=== PATIENT | male | born 1955 | race Asian ===

== ENCOUNTER 2018-06-11 22:49 | Inpatient (IN) | payer MEDICAID ==
[~2018-06-11] VITALS: Ht 165.1 cm; Wt 71.2 kg
[2018-06-11] MEDS ORDERED: DEXA4TAB PO (23:03)
[2018-06-11] MEDS ORDERED: LEVE500T9 PO (23:03)
[2018-06-11] MEDS ORDERED: HYDR12.5 PO (23:03)
[2018-06-11] MEDS ORDERED: ASPI-605 PO (23:03)
[2018-06-11] MEDS ORDERED: LISI-603 PO (23:03)
[2018-06-11] MEDS ORDERED: CARB200T PO (23:03)
[2018-06-11] MEDS ORDERED: CHOL200026 PO (23:03)
[2018-06-11] MEDS ORDERED: FAMO20TA8 PO (23:03)
--- NOTE | 2018-06-12 00:01 | NUR ---
CALLED [facility], SPOKE TO RN LAWN CARE TECHNICIAN DAYO FOR MEDICAL INFORMATION, JAMIE SIGNED CONSENT FOR [facility] TO OBTAIN INFORMATION, FAXED T0
--- NOTE | 2018-06-12 00:01 | NUR ---
BIBRA7 FR HOME FOR C/O DISCOMFORT ALL OVER BODY AND PER FAMILY, PT WAS "WHEEZING AT HOME". PT HAS HX BRAIN CA. PT IS NON VERBAL BUT ABLE TO TRACK WITH EYES. NO S/S OF ACUTE DISTRESS NOTED. RR EVEN AND UNLABORED. PT PLACED ON WIRE DRAWING MACHINE OPERATOR AND POX.
[2018-06-12 00:08] LABS: BASOPHILS % (AUTO) 0.3 % (0.0-2.0); EOSINOPHILS % (AUTO) 0.2 % (0.0-6.0); HEMATOCRIT 29 % (39-51); HEMOGLOBIN 10.5 g/dL (13.5-17.5); LYMPHOCYTES # (AUTO) 0.8 /CMM (0.8-4.8); LYMPHOCYTES % (AUTO) 8.4 % (20.0-44.0); MEAN CORPUSCULAR HGB CONC 36 g/dl (31.0-36.0); MEAN CORPUSCULAR VOLUME 92 fL (80-96); MONOCYTES # (AUTO) 0.5 /CMM (0.1-1.30); MONOCYTES % (AUTO) 5.2 % (2.0-12.0); NEUTROPHILS # (AUTO) 8.3 /CMM (1.8-8.9); NEUTROPHILS % (AUTO) 85.9 % (43.0-81.0); PLATELET COUNT (AUTO) 196 /CMM (150-450); RED BLOOD CELL COUNT(AUTO) 3.17 MIL/uL (4.5-6.0); WHITE BLOOD COUNT (AUTO) 9.7 K/uL (4.3-11.0)
[2018-06-12 00:21] LABS: ALANINE AMINOTRANSFERASE 45 U/L (12-78); ALBUMIN 2.7 g/dL (3.4-5.0); ALKALINE PHOSPHATASE 63 U/L (46-116); ASPARTATE AMINOTRANSFERASE 19 U/L (15-37); BILIRUBIN,DIRECT 0.1 mg/dL (0.0-0.2); BILIRUBIN,TOTAL 0.3 mg/dL (0.2-1.0); CALCIUM, SERUM 7.7 mg/dL (8.5-10.1); CARBON DIOXIDE 26 mmol/L (21-32); CREATININE 1.2 mg/dL (0.6-1.3); GLUCOSE 122 mg/dL (74-106); POTASSIUM 5.2 mmol/L (3.5-5.1); UREA NITROGEN, BLOOD 32 mg/dL (7-18)
[2018-06-12 00:28] LABS: CHLORIDE 80 mmol/L (98-107); SODIUM SERUM 115 mmol/L (136-145)
[2018-06-12] MEDS ORDERED: IV NS 0.9% 1,000 ML BAG IV ONE (01:00)
--- NOTE | 2018-06-12 01:10 | NUR ---
CALLED [facility], PER CHAIRSE DID NOT RECEIVE, FAX FOR DPOA AUTH FOR OBTAINING MEDICAL INFO, RESENT FAX.
--- NOTE | 2018-06-12 01:13 | NUR ---
PT TO CT
[2018-06-12] MEDS ORDERED: IV NS 0.9% 250 ML IV ONE (01:14)
[2018-06-12] MEDS ORDERED: CT SWABBABLE VALVE TRANS SET 1 EA INFUS.SET MC ONE (01:14)
[2018-06-12] MEDS ORDERED: IOHEXOL-350 100 ML VIAL IV ONE (01:14)
--- NOTE | 2018-06-12 02:47 | NUR ---
EPIC PANEL PAGED, WAITING FOR DR. WHEELER FOR ADMISSION.
--- NOTE | 2018-06-12 02:57 | NUR ---
PT ASSIGNED TO BED 111-1
--- NOTE | 2018-06-12 03:02 | NUR ---
REPORT GIVEN TO DOG WARDENCHAN WONG FOR GAVI
--- NOTE | 2018-06-12 03:18 | NUR ---
DR. WHEELER SPEAKING TO DR. FERREIRA REGARDING ADMISSION.
[2018-06-12] MEDS ORDERED: ENOXAPARIN SODIUM 80 MG/0.8 ML DISP.SYRIN SQ ONE (03:23)
[2018-06-12] MEDS ORDERED: MAGNESIUM HYDROXIDE 30 ML UDC PO PRN (04:00)
[2018-06-12] MEDS ORDERED: HYDROCODONE/APAP 5/325MG 1 EACH TABLET PO PRN (04:00)
[2018-06-12] MEDS ORDERED: MAG HYDROX/AL HYDROX/SIMETH 30 ML UDC PO PRN (04:00)
[2018-06-12] MEDS ORDERED: ZOLPIDEM TARTRATE 5 MG TABLET PO PRN (04:00)
[2018-06-12] MEDS ORDERED: ACETAMINOPHEN 325 MG TABLET PO PRN (04:00)
--- NOTE | 2018-06-12 04:00 | NUR ---
DICTATING MACHINE TRANSCRIBER ADMITTING NOTES RECEIVED REPORT FROM JESI RN. PATIENT ADMITTED TO ROOM 117-1 FROM ED W/ DIAGNOSES HYPONATREMIA & PULMONARY EMBOLISM UNDER CARE OF DR WHEELER. PATIENT UNABLE TO WALK AND A/A/O X1 TO NAME. NON-VERBAL & UNABLE TO MAKE NEEDS KNOWN. BREATHING EVEN & UNLABORED, TOLERATING ROOM AIR & SATING WELL @ 97%. SINUS RHYTHM NOTED ON TELE MONITOR. LEFT WRIST IV #18 INTACT & PATENT W/ DRESSING CDI, SALINE LOCKED. SKIN ASSESSMENT DONE. SAFETY MEASURES IN PLACE W/ SIDE RAILS UP & BED ALARM ON. CAREGIVER @ BEDSIDE. AWAITING ADMITTING ORDERS. WILL CONTINUE TO MONITOR.
--- NOTE | 2018-06-12 07:05 | NUR ---
COUNTY DEMONSTRATOR OPENING NOTES RECEIVED PT LYING ON BED.ALERT/ORIENTED X1 WITH NON VERBAL.ON TELE HR IS 60'S WITH SR.ON ROOM AIR,TOLERATING WELL.NO SOB AND ACUTE DISTRESS NOTED,IV LINE IS ON LEFT WRIST G18,SITE IS CLEAN,DRY AND INTACT.NO INFILTRATION NOTED.RASHES SEEN ON SACRAL,GROIN AND SCROTAL AREA.SAFETY IS MAINTAINED AT ALL TIMES.BED IS IN LOW POSITION AND LOCKED.CALL LIGHT IS WITHIN REACH.WILL CONTINUE TO MONITOR THE PT CLOSELY.
[2018-06-12 08:00] VITALS: BP 102/54
[2018-06-12] MEDS: CHOLECALCIFEROL 1,000 UNIT TABLET (VIT D3) PO SCH ×3 (08:37→18:55)
[2018-06-12] MEDS: LEVETIRACETAM (250 MG) 250 MG TABLET PO SCH ×3 (08:38→18:54)
[2018-06-12] MEDS: ASPIRIN EC 81 MG TABLET.DR PO SCH (08:38)
[2018-06-12] MEDS: FAMOTIDINE (20 MG) 20 MG TABLET PO SCH ×3 (08:38→18:55)
[2018-06-12] MEDS: LISINOPRIL (20MG) 20 MG TABLET PO SCH ×2 (08:38→16:39)
[2018-06-12] MEDS: DEXAMETHASONE 4 MG TABLET PO SCH ×3 (08:40→18:54)
[2018-06-12] MEDS: CARBAMAZEPINE 200 MG TABLET PO SCH ×3 (08:40→18:55)
[2018-06-12] MEDS ORDERED: HYDROCHLOROTHIAZIDE 12.5 MG CAPSULE PO SCH (09:00)
[2018-06-12] MEDS ORDERED: HYDROCHLOROTHIAZIDE 25 MG TABLET PO ONE (10:00)
[2018-06-12] MEDS ORDERED: IV Sodium Chloride 3% 500 ML 500 ML IV ONE (11:00)
[2018-06-12 11:16] LABS: BASOPHILS % (AUTO) 0.4 % (0.0-2.0); CALCIUM, SERUM 7.5 mg/dL (8.5-10.1); CREATININE 0.9 mg/dL (0.6-1.3); EOSINOPHILS % (AUTO) 0.5 % (0.0-6.0); HEMATOCRIT 29 % (39-51); HEMOGLOBIN 10.3 g/dL (13.5-17.5); LYMPHOCYTES # (AUTO) 0.7 /CMM (0.8-4.8); LYMPHOCYTES % (AUTO) 11.7 % (20.0-44.0); MEAN CORPUSCULAR HGB CONC 36 g/dl (31.0-36.0); MEAN CORPUSCULAR VOLUME 93 fL (80-96); MONOCYTES # (AUTO) 0.5 /CMM (0.1-1.30); MONOCYTES % (AUTO) 7.6 % (2.0-12.0); NEUTROPHILS # (AUTO) 4.9 /CMM (1.8-8.9); NEUTROPHILS % (AUTO) 79.8 % (43.0-81.0); PLATELET COUNT (AUTO) 165 /CMM (150-450); POTASSIUM 4.8 mmol/L (3.5-5.1); WHITE BLOOD COUNT (AUTO) 6.2 K/uL (4.3-11.0)
[2018-06-12 12:00] VITALS: BP 97/65
[2018-06-12] MEDS: ENOXAPARIN SODIUM 60 MG/0.6 ML DISP.SYRIN SQ SCH (15:44)
[2018-06-12 16:00] VITALS: BP 99/61
[2018-06-12] MEDS: ONDANSETRON HCL/PF 4 MG/2 ML VIAL IVP PRN (16:40)
[2018-06-12 16:45] LABS: CALCIUM, SERUM 7.9 mg/dL (8.5-10.1); CREATININE 0.9 mg/dL (0.6-1.3)
[2018-06-12 16:46] LABS: APPEARANCE,URINE CLEAR (CLEAR); BILIRUBIN,URINE NEGATIVE (NEGATIVE); BLOOD, URINE 1+ Ery/uL (NEGATIVE); COLOR,URINE YELLOW (YELLOW); KETONES,URINE NEGATIVE (NEGATIVE); LEUKOCYTE ESTERASE ,URINE NEGATIVE (NEGATIVE); NITRITE, URINE NEGATIVE (NEGATIVE); PROTEIN,URINE NEGATIVE (NEGATIVE); UGLUCOSE NEGATIVE (NEGATIVE); UROBILINOGEN,URINE 0.2 EU/dL (0.2)
[2018-06-12 17:03] LABS: URINE SODIUM, RANDOM 49 mmol/l (40-220)
[2018-06-12 17:04] LABS: BACTERIA,URINE Few /HPF (None Seen); SQUAMOUS EPITHELIAL CELL,UR Rare /HPF (None Seen); WBC,URINE 0-2 /HPF (0-3)
[2018-06-12] MEDS ORDERED: ENOXAPARIN SODIUM 80 MG/0.8 ML DISP.SYRIN SQ SCH (18:00)
[2018-06-12 18:28] LABS: OSMOLALITY,URINE 259 mOS/kg (340-1090)
--- NOTE | 2018-06-12 18:56 | NUR ---
STRUCTURAL DRAFTSMAN NOTES PT IS VOMITING X3-4.HOLD THE PM MEDS. MADE AWARE.
--- NOTE | 2018-06-12 18:56 | NUR ---
RIB CLOTH KNITTER NOTE PATIENT HAD 3-4EPISODE OF VOMITING . MADE AWARE.GOT NEW ORDERS.WILL CONTINUE TO MONITOR.
[2018-06-12] MEDS ORDERED: METOCLOPRAMIDE HCL 10 MG/2 ML VIAL IV PRN (19:00)
--- NOTE | 2018-06-12 19:00 | NUR ---
COLON THERAPIST CLOSING NOTES PT IS LYING ON BED.NO VOMITING NOTED FOR NOW.PT KEEPS CLEAN DRY .ENDORSED TO RELIGIOUS LEADER RN FOR FOLLOW UP THE VOMITING AND GAVI.
[2018-06-12 20:00] VITALS: BP 112/52
[2018-06-13] VITALS (8 sets, daily range): BP systolic 89–126; BP diastolic 43–76
[2018-06-13] MEDS: ENOXAPARIN SODIUM 60 MG/0.6 ML DISP.SYRIN SQ SCH (03:54)
[2018-06-13 07:12] LABS: BASOPHILS % (AUTO) 0.2 % (0.0-2.0); EOSINOPHILS % (AUTO) 0.5 % (0.0-6.0); HEMATOCRIT 30 % (39-51); HEMOGLOBIN 10.6 g/dL (13.5-17.5); LYMPHOCYTES # (AUTO) 0.5 /CMM (0.8-4.8); LYMPHOCYTES % (AUTO) 9.9 % (20.0-44.0); MEAN CORPUSCULAR HGB CONC 35 g/dl (31.0-36.0); MEAN CORPUSCULAR VOLUME 94 fL (80-96); MONOCYTES # (AUTO) 0.3 /CMM (0.1-1.30); MONOCYTES % (AUTO) 6.8 % (2.0-12.0); NEUTROPHILS # (AUTO) 3.8 /CMM (1.8-8.9); NEUTROPHILS % (AUTO) 82.6 % (43.0-81.0); PLATELET COUNT (AUTO) 162 /CMM (150-450); RED BLOOD CELL COUNT(AUTO) 3.19 MIL/uL (4.5-6.0); WHITE BLOOD COUNT (AUTO) 4.6 K/uL (4.3-11.0)
[2018-06-13 07:25] LABS: CALCIUM, SERUM 7.7 mg/dL (8.5-10.1); CREATININE 0.9 mg/dL (0.6-1.3); MAGNESIUM 2.4 mg/dL (1.8-2.4); PHOSPHORUS 3.7 mg/dL (2.5-4.9); POTASSIUM 4.3 mmol/L (3.5-5.1)
--- NOTE | 2018-06-13 07:30 | NUR ---
RN NOTES RECEIVED PATIENT ON BED. HOB ELEVATED. ALERT/ORIENTED X1, NON VERBAL. ON ROOM AIR, NO SOB NOTED AT THIS TIME, SATING AT 95%, NO SIGNS OF PAIN NOTED AT THIS TIME. SR WITH HR AT 60 ON THE MONITOR . IV LINE ON LEFT WRIST G18, SITE IS CLEAN,DRY AND INTACT. PATENT ON FLUSHING. NO INFILTRATION NOTED. RASHES SEEN ON GROIN, SCROTAL ANS SACRAL AREA. CAREGIVER AT BEDSIDE. SAFETY MEASURES OBSERVED AND MAINTAINED. BED IN LOW AND LOCKED POSITION. CALL LIGHT WITHIN REACH. ISOLATION IMPLEMENTED. WILL CONTINUE TO MONITOR THE PT CLOSELY.
[2018-06-13 07:55] LABS: THYROID STIMULATING HORMONE 1.122 uIU/mL (0.358-3.74); URIC ACID 6.9 mg/dL (2.6-7.2)
--- NOTE | 2018-06-13 08:00 | NUR ---
RN NOTES SEEN AND EXAMINED BY CHAN AMBRIZ (WOUND CARE NURSE). PER KATINA WILL PUT ORDER FOR THE WOUNDS
[2018-06-13] MEDS: ASPIRIN EC 81 MG TABLET.DR PO SCH (08:57)
[2018-06-13] MEDS: Z GUARD REMEDY 2 OZ OINT TP PRN (08:58)
[2018-06-13] MEDS: DEXAMETHASONE 4 MG TABLET PO SCH ×2 (08:58→16:48)
[2018-06-13] MEDS: FAMOTIDINE (20 MG) 20 MG TABLET PO SCH ×2 (08:58→16:48)
[2018-06-13] MEDS: LEVETIRACETAM (250 MG) 250 MG TABLET PO SCH ×2 (08:58→16:49)
[2018-06-13] MEDS: CHOLECALCIFEROL 1,000 UNIT TABLET (VIT D3) PO SCH ×2 (08:58→16:49)
[2018-06-13] MEDS: CLOTRIMAZOLE/BETAMETASONE DIPROPIONATE 15 GM TUBE TP SCH ×2 (08:58→16:50)
[2018-06-13] MEDS: CARBAMAZEPINE 200 MG TABLET PO SCH ×2 (08:58→16:48)
[2018-06-13] MEDS: LISINOPRIL (20MG) 20 MG TABLET PO SCH ×2 (08:59→16:49)
[2018-06-13] MEDS ORDERED: HYDROCHLOROTHIAZIDE 25 MG TABLET PO SCH (09:00)
--- NOTE | 2018-06-13 09:00 | NUR ---
RN NOTES CALLED [facility] TO FOLLOW UP ON THE CTA OF THE CHEST RESULT, PER APPRAISER REAL ESTATE, MEDICAL OFFICE CLOSED ON . OBTAINED PHONE NUMBER AT [phone] AND FAX NUMBER AT [phone]. LEFT VOICE MAIL AND CALL BACK NUMBER.
--- NOTE | 2018-06-13 09:15 | NUR ---
RN NOTES SPOKE TO YAMILE HERRERA (DAUGHTER), ASKED FOR DISCHARGE PAPERS GIVEN TO THE PATIENT ON THE LAST HOSPITALIZATION, WAS ABLE TO FAXED BUT UNFORTUNATELY DOES NOT INCLUDE CTA RESULT. PAPERS FILED ON THE CHART
--- NOTE | 2018-06-13 12:06 | NUR ---
WOUND CARE CONSULT: PT PRESENTS WITH RASH TO PERINEAL, GROIN, BUTTOCKS PRESENT ON ADMISSION. RECOMMENDATIONS MADE FOR SKIN CARE AND PROTECTION. DISCUSSED WITH NURSING STAFF. WILL SEE PRN. CASTAÑEDA IN AGREEMENT WITH PLAN OF CARE. Addendum: 06/13/18 at 1208 by KATINA STONE WNDNU PT ON [facility].
[2018-06-13] MEDS: ONDANSETRON HCL/PF 4 MG/2 ML VIAL IVP PRN (19:14)
--- NOTE | 2018-06-13 19:30 | NUR ---
RN NOTES PATIENT NOTED WITH VOMITING, PATIENT FED BY DAUGHTER. PER DAUGHTER, GAVE PATIENT OATMEAL BROUGHT FROM OUTSIDE. PATIENT KEPT UPRIGHT, GIVEN ZOFRAN 4MG IV PRN. THEN NOTED WITH SATURATION AT 89%, PATIENT PLACED ON NON REBREATHER MASK, STAT CHEST XRAY AND ABG OBTAINED. PATIENT KEPT MONITORED.
--- NOTE | 2018-06-13 19:45 | NUR ---
RN NOTES ENDORSED PATIENT FOR CONTINUITY OF CARE. PATIENT STILL ON HIGH CLARK'S POSITION. ON NON REBREATHER MASK SATING AT 95%. SAFETY MEASURES IN PLACE. CALL LIGHT WITHIN REACH AT ALL TIMES
[2018-06-13 20:00] LABS: ABG BASE EXCESS -3.6 mmol/L; ABG PCO2 28.2 mmHg (35.0-45.0); ABG PH 7.454 (7.350-7.450); ABG PO2 74.4 mmHg (75.0-100.0); AaDO2 610.4 mmHg; COHb 0.3 % (0.5-1.5); MetHb 0.6 % (0.0-1.5); O2Hb 93.2 % (94.0-97.0); SITE, ABG Right Radial
--- NOTE | 2018-06-13 20:00 | NUR ---
FOUNDRY TENDER NOTE: RECEIVED PT WITH HEAD OF BED ELEVATED. DAUGHTER AND CAREGIVER AT BEDSIDE. PT STILL COUGHING. SUCTIONED NEEDED. ON NON REBREATHER MASK 15LPM, O2 SAT 97%. SINUS RHYTHM ON TELE MONITOR HR 100BPM. IV ON LEFT WRIST #18 INTACT AND PATENT, FLUSHING WELL. KEPT CLEAN, DRY AND COMFORTABLE. SAFETY AND FALL PRECAUTIONS OBSERVED AND MAINTAINED. WILL CONTINUE TO MONITOR PT.
--- NOTE | 2018-06-13 22:37 | NUR ---
COLLAR RUNNER NOTE: DR. WHEELER MADE AWARE REGARDING PATIENT'S CHANGE OF CONDITION EARLIER, PER DR. WHEELER JUST MONITOR PT AND KEEP HIM ON NON REBREATHER MASK 15LPM. PATIENT STABLE AT THIS TIME. ALSO INFORMED DR. WHEELER REGARDING BLOOD CULTURE RESULT GRAM POSITIVE COCCI IN CLUSTERS, NO NEW ORDERS. WILL CONTINUE TO MONITOR PT.
[2018-06-14] VITALS (63 sets, daily range): BP systolic 68–157; BP diastolic 39–101
[2018-06-14 06:28] LABS: BASOPHILS % (AUTO) 0.2 % (0.0-2.0); EOSINOPHILS % (AUTO) 0.3 % (0.0-6.0); HEMATOCRIT 26 % (39-51); HEMOGLOBIN 9.3 g/dL (13.5-17.5); LYMPHOCYTES # (AUTO) 0.5 /CMM (0.8-4.8); LYMPHOCYTES % (AUTO) 15.8 % (20.0-44.0); MEAN CORPUSCULAR HGB CONC 35 g/dl (31.0-36.0); MEAN CORPUSCULAR VOLUME 93 fL (80-96); MONOCYTES # (AUTO) 0.3 /CMM (0.1-1.30); MONOCYTES % (AUTO) 9.9 % (2.0-12.0); NEUTROPHILS # (AUTO) 2.1 /CMM (1.8-8.9); NEUTROPHILS % (AUTO) 73.8 % (43.0-81.0); PLATELET COUNT (AUTO) 161 /CMM (150-450); RED BLOOD CELL COUNT(AUTO) 2.82 MIL/uL (4.5-6.0); WHITE BLOOD COUNT (AUTO) 2.9 K/uL (4.3-11.0)
[2018-06-14 06:39] LABS: CALCIUM, SERUM 8.1 mg/dL (8.5-10.1); CREATININE 1.3 mg/dL (0.6-1.3); MAGNESIUM 2.3 mg/dL (1.8-2.4); PHOSPHORUS 3.5 mg/dL (2.5-4.9); POTASSIUM 4.7 mmol/L (3.5-5.1)
--- NOTE | 2018-06-14 06:50 | NUR ---
TRUCK RENTAL SERVICE ATTENDANT NOTE: PT IN BED ASLEEP WITH NO APPARENT DISTRESS NOTED. PT STABLE AT THIS TIME. NO FACIAL GRIMACING OR ANY SIGNS OF PAIN NOTED. CAREGIVER AT BEDSIDE. ON TELE MONITOR SINUS RHYTHM HR 96BPM. STILL ON NON REBREATHER MASK, SATURATING WELL. KEPT CLEAN, DRY AND COMFORTABLE. SAFETY AND FALL PRECAUTIONS OBSERVED AND MAINTAINED. WILL ENDORSE TO DAY SHIFT RN FOR CONTINUITY OF CARE.
--- NOTE | 2018-06-14 07:15 | NUR ---
MANAGER PERIOPERATIVE OPENING NOTES RECEIVED REPORT FROM AM NURSEBONITA. PT ON 15L NRB MASK WITH LABORED BREATHING. SR 92 ON TELE. R SHOULDER #22 SL. CAREGIVER AT BEDSIDE. HOB ELEVATED TO 40 DEG. PM NURSE INITIATED COOLING MEASURES FOR LOW GRADE FEVER. BED IN LOCKED/LOWEST POSITION. CALL LIGHT IN REACH. WILL CONT TO MONITOR.
[2018-06-14] MEDS: FAMOTIDINE (20 MG) 20 MG TABLET PO SCH ×2 (08:09→17:31)
[2018-06-14] MEDS: CHOLECALCIFEROL 1,000 UNIT TABLET (VIT D3) PO SCH ×2 (08:09→17:32)
[2018-06-14] MEDS: DEXAMETHASONE 4 MG TABLET PO SCH ×2 (08:09→17:34)
[2018-06-14] MEDS: ASPIRIN EC 81 MG TABLET.DR PO SCH (08:09)
[2018-06-14] MEDS: LEVETIRACETAM (250 MG) 250 MG TABLET PO SCH ×2 (08:10→17:31)
[2018-06-14] MEDS: LISINOPRIL (20MG) 20 MG TABLET PO SCH (08:11)
[2018-06-14] MEDS: CLOTRIMAZOLE/BETAMETASONE DIPROPIONATE 15 GM TUBE TP SCH ×2 (08:28→17:46)
[2018-06-14 08:29] LABS: BAND % (MANUAL) 21 % (0.0-5.0); EOSINOPHILS % (MANUAL) 1 % (0-4); LYMPHOCYTES % (MANUAL) 24 % (16-48); MONOCYTES % (MANUAL) 7 % (0-11.0); NEUTROPHILS % (MANUAL) 47 (42-76)
[2018-06-14] MEDS ORDERED: ETOMIDATE 2 MG/ML VIAL IV ONE (10:00)
--- NOTE | 2018-06-14 10:00 | NUR ---
SLEEVE MAKER NOTES DR CORNEJO ROUNDED WITH PT. PER DR CORNEJO, PT NEEDS TO BE INTUBATED AND TRANSFERRED TO ICU NOW D/T LABORED BREATHING AND ABG'S.
--- NOTE | 2018-06-14 10:10 | NUR ---
HIGHWAY MAINTENANCE SUPERVISOR NOTES PT TRANSFERRED TO ICU, RT AT BEDSIDE, CHAN SEXTON ACCOMPANYING. PT ON NON REBREATHER AT 15LPM. REPORT GIVEN TO CHAN RAMSAY FOR GAVI. CAREGIVER AT BEDSIDE. DR CORNEJO AT BS. INTUBATION TO BE DONE IN ICU.
--- NOTE | 2018-06-14 10:20 | NUR ---
ICU/RN: Pt transferred to ICU for respiratory distress requiring emergent intubation per Dr Garcia. ER MD contacted for intubation.
--- NOTE | 2018-06-14 10:26 | NUR ---
PT INTUBATED BY DR. BHAKTA DUE TO PT IMPENDING RESP. FAILURE. PT INTUBATED WITH A 7.0 ETT AT 20CM AT THE LIP. VENT SETTINGS PER DR. CORNEJO. VENT ALARMS SET AND AUDIBLE PER POLICY. VENT PLUGGED INTO RED OUTLET. Addendum: 06/14/18 at 1238 by LUCILLE PURVIS RT Amended: Links added.
[2018-06-14] MEDS ORDERED: NOREPINEPHRINE 8 MG in IV D5W 500 ML IV PRN (10:30)
[2018-06-14] MEDS ORDERED: IV NS 0.9% 1,000 ML IV ONE (10:30)
--- NOTE | 2018-06-14 10:30 | NUR ---
ICU/RN: Dr Garcia at bedside s/p intubation. Noted pt hypotensive with orders to bolus 1L NS, if ineffective, bolus an additional 1.5L to keep SBP >90mmHg. Juan Carlos, daughter updated telephonically and consent obtained for PICC line placement. brim presser updated.
[2018-06-14] MEDS: PROPOFOL 100 ML IV PRN ×3 (10:41→21:22)
[2018-06-14] MEDS ORDERED: VANCOMYCIN 1 GM in IV D5W 250 ML IV ONE (11:00)
[2018-06-14] MEDS ORDERED: FEE PK DOSING 1 MIN EA MC ONE (11:11)
[2018-06-14] MEDS: PIPERACILLIN /TAZOBACTAM 3.375 G in IV D5W 50 ML IV SCH ×2 (11:59→17:31)
[2018-06-14] MEDS: HYDROCORTISONE SOD SUCCINATE 100 MG/2 ML VIAL IV SCH ×3 (11:59→17:31)
--- NOTE | 2018-06-14 12:00 | NUR ---
ICU/RN: Pt vomited what appears to be pt's breakfast, HOB elevated; OGT clamped. Aspiration precautions maintained throughout.
[2018-06-14 12:16] LABS: ABG BASE EXCESS -3.5 mmol/L; ABG OXYGEN SATURATION 98.5 % (92.0-98.5); ABG PCO2 33.2 mmHg (35.0-45.0); ABG PH 7.411 (7.350-7.450); AaDO2 323.8 mmHg; COHb 0.4 % (0.5-1.5); MetHb 0.6 % (0.0-1.5); O2Hb 97.5 % (94.0-97.0); PEEP,BG 5 cm H2O; SITE, ABG Right Radial
--- NOTE | 2018-06-14 13:00 | NUR ---
ICU/RN: Dr Carreno at bedside; updated on pt status, S/P intubation, ongoing total of 2.5L NS bolus as ordered by Dr Garcia. Per MD, okay to start levophed if fluid challenge ineffective in managing hypotension. Awaiting central line placement.
--- NOTE | 2018-06-14 14:15 | NUR ---
ICU/RN: Pt s/p central line insertion; new R IJ triple lumen cath inserted by Jose De Jesus Hahn NP. Pt tolerated well. Pending CXR for placement.
[2018-06-14] MEDS: IV D5/ 0.9% NACL 1,000 ML IV PRN ×2 (14:50→21:00)
--- NOTE | 2018-06-14 15:00 | NUR ---
ICU/RN: Pt noted with R lower ext twitching, per daughter at bedside "he's had that for awhile now, especially at night." Jose De Jesus Hahn, VINEGAR MAKER aware, pt currently on decadron and keppra.
--- NOTE | 2018-06-14 16:00 | NUR ---
ICU/RN: Pt tolerating current vent settings, no distress noted. FC draining well to gravity. Hygienic care rendered. Tolerated well. Will cont to monitor pt.
--- NOTE | 2018-06-14 19:16 | NUR ---
ICU/RN: Pt in no distress, breathing even and unlabored, IV meds infusing as ordered. FC draining to gravity. Care endorsed to PM RN for GAVI
--- NOTE | 2018-06-14 19:45 | NUR ---
ICU/RN RECEIVED PT ON VENT VIA ORAL ETT SAT 99% ON 40% FI02.PT RESPONDS ONLY TO TACTILE STIM BY TWITCHING RT LEG AND FROWNING,ALTHOUGH TWITCHING RT LEG IS INVOLUNTARY.ON DIPRIVAN DRIP AT 40MCG.KG/MINUTE DECREASED TO 30MCG SBP=88/52MMHG.ON LEVOPHED DRIP AT 3MCG/MIN THEN INCREASED TO 4MCG/MIN.
[2018-06-14] MEDS: NEOMY SULF/BACITRAC ZN/POLY 15 GM TUBE TP SCH (21:09)
--- NOTE | 2018-06-14 22:00 | NUR ---
ICU/RN SUCTIONED FROM ETT SMALL AMT.THIN TO THICK PALE YELLOW TO WHITE SECRETIONS,ORAL CARE DONE.
[2018-06-14] MEDS: VANCOMYCIN 1 GM in IV D5W 250 ML IV SCH (23:57)
[2018-06-15] VITALS (87 sets, daily range): BP systolic 88–141; BP diastolic 45–86
--- NOTE | 2018-06-15 | NUR ---
ICU/RN COMPLETE BED BATH DONE W/ ORAL CARE.REPOSITIONED AND TURNED.
--- NOTE | 2018-06-15 02:30 | NUR ---
ICU/RN LEVOPHED DRIP DECREASED TO 3MCG/MIN W/ SBP 124MMHG.
[2018-06-15] MEDS: IV D5/ 0.9% NACL 1,000 ML IV PRN ×2 (04:53→13:22)
[2018-06-15 05:32] LABS: EOSINOPHILS % (AUTO) 0.1 % (0.0-6.0); HEMATOCRIT 22 % (39-51); HEMOGLOBIN 7.7 g/dL (13.5-17.5); LYMPHOCYTES # (AUTO) 0.2 /CMM (0.8-4.8); LYMPHOCYTES % (AUTO) 6.9 % (20.0-44.0); MEAN CORPUSCULAR HGB CONC 35 g/dl (31.0-36.0); MEAN CORPUSCULAR VOLUME 94 fL (80-96); MONOCYTES # (AUTO) 0.2 /CMM (0.1-1.30); MONOCYTES % (AUTO) 6.3 % (2.0-12.0); NEUTROPHILS # (AUTO) 2.9 /CMM (1.8-8.9); NEUTROPHILS % (AUTO) 86.7 % (43.0-81.0); PLATELET COUNT (AUTO) 142 /CMM (150-450); RED BLOOD CELL COUNT(AUTO) 2.33 MIL/uL (4.5-6.0); WHITE BLOOD COUNT (AUTO) 3.4 K/uL (4.3-11.0)
[2018-06-15] MEDS: PROPOFOL 100 ML IV PRN ×3 (05:42→19:52)
[2018-06-15 05:46] LABS: CALCIUM, SERUM 7.2 mg/dL (8.5-10.1); CREATININE 0.9 mg/dL (0.6-1.3); MAGNESIUM 2.3 mg/dL (1.8-2.4); PHOSPHORUS 2.9 mg/dL (2.5-4.9); POTASSIUM 3.6 mmol/L (3.5-5.1)
[2018-06-15 05:55] LABS: THYROID STIMULATING HORMONE 0.189 uIU/mL (0.358-3.74)
[2018-06-15] MEDS: PIPERACILLIN /TAZOBACTAM 3.375 G in IV D5W 50 ML IV SCH ×6 (06:04→23:08)
--- NOTE | 2018-06-15 06:30 | NUR ---
ICU/RN LEVOPHED DRIP DECREASED TO 2MCG/MIN W/ SBP [id number].PT ATTEMPTED TO PULL ETT W/ HIS LEFT HAND EVEN W/ RESTRAINTS ON.RESTRAINTS ADJUSTED AND CIRC.CHECKED.REMAINS ON DIPRIVAN DRIP AT 30 MCG/KG/MIN.MONITOR SHOWS NSR.ABDOMEN DISTENDED W/ HYPOACTIVE BOWEL SOUNDS.NO CHANGE ON VENT SETTINGS,100% SATURATION.
--- NOTE | 2018-06-15 07:25 | NUR ---
ICU/RN REPORT AND CARE OF PT. GIVEN TO ASHLEY Desir
--- NOTE | 2018-06-15 07:30 | NUR ---
RECEIVED CARE OF PATIENT. UNTUBATED 7. AND VENT SETTINGS PER ORDER. SEDATED ON DIPRIVAN AND LEVO PER SPREADEET. IV SITES C/D/I/P AND ALEXANDER IN PLACE DRAINING TO GRAVITY. PER RN 1500ML OUTPUT URINE. OGT IN PALCE PATENT AND IN PLACE; CLAMPED. TELE NSR. RESTRAINTS IN PLACE PER RN PATIENT AT TIMES WILL MOVE EXTREMITIES AND WAKE UP. WILL MONITOR FOR NECESSITY. NO S/S ACUTE DISTRESS NOTED. SAFETY, SKIN, ASPIRATION PRECAUTIONS IN PLACE AND MONITORING
[2018-06-15] MEDS: HYDROCORTISONE SOD SUCCINATE 100 MG/2 ML VIAL IV SCH ×3 (08:24→16:54)
[2018-06-15] MEDS: ASPIRIN EC 81 MG TABLET.DR PO SCH (08:24)
[2018-06-15] MEDS: FAMOTIDINE (20 MG) 20 MG TABLET PO SCH ×2 (08:24→16:54)
[2018-06-15] MEDS: LEVETIRACETAM (250 MG) 250 MG TABLET PO SCH ×2 (08:24→16:54)
[2018-06-15] MEDS: CHOLECALCIFEROL 1,000 UNIT TABLET (VIT D3) PO SCH ×2 (08:25→17:03)
[2018-06-15 08:27] LABS: ABG BASE EXCESS -5.3 mmol/L; ABG OXYGEN SATURATION 97.9 % (92.0-98.5); ABG PCO2 30.8 mmHg (35.0-45.0); ABG PH 7.403 (7.350-7.450); ABG PO2 138.5 mmHg (75.0-100.0); AaDO2 111.3 mmHg; COHb 0.3 % (0.5-1.5); MetHb 0.7 % (0.0-1.5); O2Hb 96.9 % (94.0-97.0); SITE, ABG Right Radial
[2018-06-15] MEDS: Z GUARD REMEDY 2 OZ OINT TP PRN (08:28)
[2018-06-15] MEDS: CLOTRIMAZOLE/BETAMETASONE DIPROPIONATE 15 GM TUBE TP SCH ×2 (08:29→17:12)
[2018-06-15] MEDS: NEOMY SULF/BACITRAC ZN/POLY 15 GM TUBE TP SCH ×2 (08:29→21:18)
[2018-06-15] MEDS: DEXAMETHASONE 4 MG TABLET PO SCH ×2 (08:33→17:02)
--- NOTE | 2018-06-15 09:00 | NUR ---
SEDATION VACATION COMPLETE . PATIENT AWAKENS. OPENS EYES, MOVING LEFT EXTREMITY. NOT FOLLOWING COMMANDS AT THIS TIME. PER CG PATIENT DOES NOT ALWAYS FOLLOW COMMANDS AND THIS IS HIS USUAL. PATIENT THRASHING HEAD WITHOUT SEDATION. APPEARS UNCOMFORTABLE. WILL RESUME. DR CORNEJO AT BEDSIDE.
--- NOTE | 2018-06-15 11:28 | NUR ---
Abdomen distended, but soft. Bowel sounds present on all four quadrants. Addendum: 06/15/18 at 1140 by ASHLEY HUTCHINS RN Amended: Links added.
[2018-06-15] MEDS: VANCOMYCIN 1 GM in IV D5W 250 ML IV SCH (12:47)
--- NOTE | 2018-06-15 19:15 | NUR ---
CARE ENDORSED TO ASHA GILES FOR GAVI. VSS. ETT STABLE. VENT SETTINGS PER ORDER AND TOLERATING WELL. NO S/S DISTRESS NOTED. SKIN, SAFETY, ASPIRATION PRECAUTIONS IN PLACE AND MONITORED THROUGHOUT DAY. DAUGHTER AT BEDSIDE AND UPDATED ON PATIENT CARE PLAN. ALEXANDER CATH TO GRAVITY. IV SITES C/D/I/P.
--- NOTE | 2018-06-15 19:30 | NUR ---
RN NOTES PATIENT IS RESTING ON BED. CAREGIVER AND DAUGHTER AT BEDSIDE RECEIVED PT WITH ETT 7.0 AND 23 CM AT LIP CONNECTED TO VENT SETTING AC 16, TV 550 FIO2 40% PEEP 5 TOLERATED WELL. PATIENT IS SEDATED WITH DIPRIVAN FOR SAFETY FROM PULLING OUT THE TUBES AND LINES. SINUS NADER/ NSR ON TELE MONITOR. IV SITE ON LEFT HAND G 20 AND RIGHT SHOULDER G 22 AND ALSO RIJ RUNNING WITH DIPRIVAN @ 35 AND D5 NS @ 50 ML.HR INTACT AND PATENT. NEEDS ATTENDED. KEPT PT CLEAN AND DRY, OFFLOADED EXT WITH PILLOWS. TURNED AND REPOSITIONED FOR SKIN CARE , WILL CONT. TO MONITOR.
[2018-06-16] VITALS (39 sets, daily range): BP systolic 11–150; BP diastolic 59–100
[2018-06-16] MEDS: VANCOMYCIN 1 GM in IV D5W 250 ML IV SCH ×2 (01:22→11:47)
[2018-06-16] MEDS: PROPOFOL 100 ML IV PRN (02:28)
[2018-06-16 04:43] LABS: EOSINOPHILS % (AUTO) 0.1 % (0.0-6.0); HEMATOCRIT 22 % (39-51); HEMOGLOBIN 7.6 g/dL (13.5-17.5); LYMPHOCYTES # (AUTO) 0.4 /CMM (0.8-4.8); LYMPHOCYTES % (AUTO) 9.5 % (20.0-44.0); MEAN CORPUSCULAR HGB CONC 35 g/dl (31.0-36.0); MEAN CORPUSCULAR VOLUME 94 fL (80-96); MONOCYTES # (AUTO) 0.5 /CMM (0.1-1.30); MONOCYTES % (AUTO) 11.1 % (2.0-12.0); NEUTROPHILS # (AUTO) 3.3 /CMM (1.8-8.9); NEUTROPHILS % (AUTO) 79.3 % (43.0-81.0); PLATELET COUNT (AUTO) 151 /CMM (150-450); RED BLOOD CELL COUNT(AUTO) 2.34 MIL/uL (4.5-6.0); WHITE BLOOD COUNT (AUTO) 4.1 K/uL (4.3-11.0)
[2018-06-16 04:49] LABS: ALBUMIN 1.7 g/dL (3.4-5.0); BILIRUBIN,TOTAL 0.3 mg/dL (0.2-1.0); CALCIUM, SERUM 7.4 mg/dL (8.5-10.1); CREATININE 0.9 mg/dL (0.6-1.3); MAGNESIUM 2.3 mg/dL (1.8-2.4); PHOSPHORUS 3.3 mg/dL (2.5-4.9); POTASSIUM 3.3 mmol/L (3.5-5.1); TOTAL PROTEIN, SERUM 4.9 g/dL (6.4-8.2)
[2018-06-16] MEDS: PIPERACILLIN /TAZOBACTAM 3.375 G in IV D5W 50 ML IV SCH ×3 (05:16→17:16)
--- NOTE | 2018-06-16 07:18 | NUR ---
RN NOTES PATIENT REMAINED IN STABLE CONDITION CONTINUE ON ETT AND VENT. NO APPARENT RESPIRATORY DISTRESS. AFEBRILE THROUGHOUT THE SHIFT. NO SIGNIFICANT CHANGE OF CONDITION. PT CONTINUE SEDATED WITH DIPRIVAN TITRATED ORDERED. IV SITE INTACT AND PATENT. SINUS NADER ON TELE MONITOR LOWEST ONE WAS 38 ONE TIME. BED BATH DONE AND TOLERATED WELL. ALL DUE MEDICINE ADMINISTERED ORDERED. F/C INTACT AND PATENT AND OFF FROM THE FLOOR. ENDORSED CONTINUITY OF CARE TO AM NURSE.
--- NOTE | 2018-06-16 07:28 | NUR ---
RECEIVED CARE OF PATIENT. INTUBATED 7.0/23 AND VENT SETTINGS PER ORDER. SEDATED ON DIPRIVAN MOVES TO LOCALIZED PAIN. IV SITES C/D/I/P AND ALEXANDER IN PLACE DRAINING TO GRAVITY. OGT IN PLACE PATENT AND CLAMPED. TELE NSR/SB LOWEST 38 LAST NIGHT. RESTRAINT IN PLACE TO LEFT HAND PATIENT AT TIMES WILL MOVE EXTREMITY AND WAKE UP. NO S/S ACUTE DISTRESS NOTED. SAFETY, SKIN, ASPIRATION PRECAUTIONS IN PLACE AND MONITORING. RT AWARE PERKINS WITH ID WANTING RESP CX; THEY WILL OBTAIN. PENDING WEANING TRIAL THIS AM.
[2018-06-16] MEDS ORDERED: DC PROPOFOL WHEN EXTUBATED XX PRN (08:00)
[2018-06-16] MEDS: ASPIRIN EC 81 MG TABLET.DR PO SCH (08:01)
[2018-06-16] MEDS: LEVETIRACETAM (250 MG) 250 MG TABLET PO SCH ×2 (08:01→16:28)
[2018-06-16] MEDS: DEXAMETHASONE 4 MG TABLET PO SCH ×2 (08:02→16:30)
[2018-06-16] MEDS: HYDROCORTISONE SOD SUCCINATE 100 MG/2 ML VIAL IV SCH ×3 (08:02→16:27)
[2018-06-16] MEDS: FAMOTIDINE (20 MG) 20 MG TABLET PO SCH ×2 (08:02→16:28)
[2018-06-16] MEDS: CHOLECALCIFEROL 1,000 UNIT TABLET (VIT D3) PO SCH ×2 (08:02→16:28)
[2018-06-16] MEDS: Z GUARD REMEDY 2 OZ OINT TP PRN (08:03)
[2018-06-16] MEDS: CLOTRIMAZOLE/BETAMETASONE DIPROPIONATE 15 GM TUBE TP SCH ×2 (08:04→17:16)
[2018-06-16] MEDS: NEOMY SULF/BACITRAC ZN/POLY 15 GM TUBE TP SCH ×2 (08:04→22:00)
--- NOTE | 2018-06-16 08:40 | NUR ---
PATIENT TITRATED OFF DIPRIVAN. CALM AND COOPERATIVE. AWAKE TO NAME. SQUEEZING LEFT HAND TO REQUEST. DR CORNEJO AT BEDSIDE. OK FOR SIMV TRIAL; RT BROCK AT BESIDE.
--- NOTE | 2018-06-16 09:30 | NUR ---
RT NOTE RECEIVED PT MECHANICALLY VENTILATED VIA 7.0 ETT 20 CM AT LIP. ETT SECURE. CUFF INFLATED. VENTILATOR SETTINGS PRESCRIBED. ALARMS SET PER PROTOCOL AND AUDIBLE. VENT PLUGGED IN TO RED OUTLET. AMBU BAG AT BED SIDE. 0840- PT PLACED ON SIMV MODE PER MD CORNEJO ORDER. SETTINGS FOLLOW SIMV 4 PS 15 +5. PT AWAKE AND RESPONDS TO COMMANDS. PT PERSONAL SITTER AT BED SIDE. RN NOTIFIED. NO DISTRESS NOTED AT MOMENT. Addendum: 06/16/18 at 0934 by VINOD MATHIS RT Amended: Links added.
[2018-06-16 10:08] LABS: ABG OXYGEN SATURATION 96.6 % (92.0-98.5); ABG PCO2 26.1 mmHg (35.0-45.0); ABG PH 7.456 (7.350-7.450); ABG PO2 103.2 mmHg (75.0-100.0); COHb 0.4 % (0.5-1.5); MetHb 0.8 % (0.0-1.5); O2Hb 95.4 % (94.0-97.0); PEEP,BG 5 cm H2O; SITE, ABG Right Radial; VENT MODE, BG SIMV 4 PS 15 +5
--- NOTE | 2018-06-16 10:30 | NUR ---
RT NOTE PT EXTUBATED PER MD ORDER POST ABG. PT PLACED ON NC AT 3L FLOW. NO DISTRESS NOTED. RN NOTIFIED. AMBU BAG AT BED SIDE. Addendum: 06/16/18 at 1031 by VINOD MATHIS RT Amended: Links added.
--- NOTE | 2018-06-16 10:30 | NUR ---
PATIENT EXTUBATED PER MD ORDER. ON LOW FLOW 02 NC TOLERATING WELL. NO SOB, DIFFICULTY BREATHING.
[2018-06-16] MEDS: IV D5/ 0.9% NACL 1,000 ML IV PRN (10:52)
[2018-06-16] MEDS: POTASSIUM CL. PREMIX PERIPHER. 50 ML IV SCH ×2 (11:15→12:26)
[2018-06-16] MEDS ORDERED: LORAZEPAM INJ 2 MG/ML VIAL IV PRN (17:30)
--- NOTE | 2018-06-16 18:40 | NUR ---
DR RODRIGUEZ AT BEDSIDE. PER MD NO ANTICOAGULANTS AT THIS TIME. WAIT UNTIL CHEMO STARTED.
--- NOTE | 2018-06-16 18:41 | NUR ---
ALL DUE MEDS GIVEN AND ALL NEEDS MET. PATIENT STABLE. VSS. ROOM AIR STABLE 98%. NO SOB, DIFFICULTY BREATHING OR DISTRESS. ALEXANDER C/D/I. IV SITES C/D/I/P AND IVF RUNNING PER MD ORDER. SAFETY, SKIN, ASPIRATION PRECAUTIONS IN PLACE AND MONITORED.
--- NOTE | 2018-06-16 19:20 | NUR ---
RN NOTES PATIENT AWAKE ON BED. NO ACUTE RESPIRATORY DISTRESS ON O2 3LPM VIA NC SATURATION 97%.. PT IS APHASIC , EYES OPEN WATCHING TV , NO FACIAL COMPLAIN OF PAIN. TELE MONITOR REVEALS SB/SR. IV SITE ON LH, RT SHOULDER AND RIJ WHICH RUNNING D5 NS @ 50 ML/HR FLUSHED WELL WITH GOOD BLOOD RETURN, C/D/I. CONTINUE WITH ALEXANDER CATH DRAINED VIA GRAVITY. KEPT PT CLEAN AND DRY. HOB KEPT ELEVATED. OFFLOADED EXT WITH PILLOWS TURNED AND REPOSITIONED PATIENT FOR SKIN SAFETY AND COMFORTABLE POSITION. CALL LIGHT KEPT WITHIN EASY REACH AND INSTRUCTED TO USED FOR ASSISTANCE.
[2018-06-17] VITALS (20 sets, daily range): BP systolic 114–150; BP diastolic 62–90
[2018-06-17] MEDS: PIPERACILLIN /TAZOBACTAM 3.375 G in IV D5W 50 ML IV SCH ×4 (00:05→17:29)
[2018-06-17 04:10] LABS: BASOPHILS % (AUTO) 0.1 % (0.0-2.0); EOSINOPHILS % (AUTO) 0.1 % (0.0-6.0); HEMATOCRIT 23 % (39-51); LYMPHOCYTES # (AUTO) 0.5 /CMM (0.8-4.8); LYMPHOCYTES % (AUTO) 12.4 % (20.0-44.0); MEAN CORPUSCULAR HGB CONC 35 g/dl (31.0-36.0); MEAN CORPUSCULAR VOLUME 95 fL (80-96); MONOCYTES # (AUTO) 0.5 /CMM (0.1-1.30); MONOCYTES % (AUTO) 12.5 % (2.0-12.0); NEUTROPHILS # (AUTO) 3.2 /CMM (1.8-8.9); NEUTROPHILS % (AUTO) 74.9 % (43.0-81.0); PLATELET COUNT (AUTO) 159 /CMM (150-450); RED BLOOD CELL COUNT(AUTO) 2.41 MIL/uL (4.5-6.0); WHITE BLOOD COUNT (AUTO) 4.2 K/uL (4.3-11.0)
[2018-06-17 04:20] LABS: CALCIUM, SERUM 7.4 mg/dL (8.5-10.1); POTASSIUM 3.3 mmol/L (3.5-5.1)
[2018-06-17] MEDS: IV D5/ 0.9% NACL 1,000 ML IV PRN (06:57)
--- NOTE | 2018-06-17 07:10 | NUR ---
RN INITIAL NOTES RECEIVED PT AWAKE, A/OX1, ABLE TO FOLLOW COMMANDS. PT APHASIC. ON 02 AT 3LPM VIA NC. NO SOB NOTED. NO SIGNS OF PAIN NOTED. RIJ IN PLACE. IVF INFUSING. FC IN PLACE. NO HEMATURIA NOTED. PT CLEAN AND DRY. COMFORTABLE. BLE ELEVATED. WILL CONTINUE TO MONITOR.
--- NOTE | 2018-06-17 07:21 | NUR ---
RN NOTES PATIENT ASLEEP WELL LAST NIGHT NO SIGNIFICANT GAVI THROUGHOUT THE SHIFT. AFEBRILE. VSS. SATURATION REMAINED >96%. SINUS NADER AND NSR ON TELE MONITOR. NO RESPIRATORY DISTRESS. NO FACIAL COMPLAINED OF PAIN. BMX2. KEPT PT CLEAN AND DRY. CALL LIGHT KEPT WITHN EASY REACH. ENDORSED CONTINUITY OF CARE TO AM NURSE.
[2018-06-17] MEDS: DEXAMETHASONE 4 MG TABLET PO SCH ×2 (08:07→16:32)
[2018-06-17] MEDS: ASPIRIN EC 81 MG TABLET.DR PO SCH (08:07)
[2018-06-17] MEDS: FAMOTIDINE (20 MG) 20 MG TABLET PO SCH ×2 (08:07→16:33)
[2018-06-17] MEDS: LEVETIRACETAM (250 MG) 250 MG TABLET PO SCH ×2 (08:07→16:32)
[2018-06-17] MEDS: HYDROCORTISONE SOD SUCCINATE 100 MG/2 ML VIAL IV SCH ×3 (08:07→16:32)
[2018-06-17] MEDS: CHOLECALCIFEROL 1,000 UNIT TABLET (VIT D3) PO SCH ×2 (08:07→16:32)
[2018-06-17] MEDS: NEOMY SULF/BACITRAC ZN/POLY 15 GM TUBE TP SCH ×2 (08:08→21:25)
[2018-06-17] MEDS: CLOTRIMAZOLE/BETAMETASONE DIPROPIONATE 15 GM TUBE TP SCH ×2 (08:08→16:33)
[2018-06-17] MEDS ORDERED: POTASSIUM CHLORIDE 20 MEQ POWDER PACKET PO SCH (11:00)
[2018-06-17] MEDS: VANCOMYCIN 1 GM in IV D5W 250 ML IV SCH (11:00)
--- NOTE | 2018-06-17 11:00 | NUR ---
RN NOTES 09 SEEN AND EXAMINED BY DR CORNEJO. PT EXTUBATED YESTERDAY. ON AT 3LPM VIA NC. NO SOB NOTED. KEPT HOB ELEVATED. AWARE OF LAB VALUES AND CXR RESULT. CLEARED PT TO DOWNGRADE TO CAROLE. 1100 SEEN AND EXAMINED BY DR DANIELS. AWARE OF LAB VALUES: WBC 4.2, HGB 8, HCT 23, PLATELET 159. POTASSIUM 3.3, REPLACED. ALSO AWARE OF CXR RESULT. OK TO DOWNGRADE PT TO CAROLE. PT, OT AND ST EVAL ORDERED. WILL CONTINUE TO MONITOR.
--- NOTE | 2018-06-17 15:30 | NUR ---
CAROLE RN NOTE RECEIVED PATIENT FROM ICU , ALERT AWAKE BUT UNABLE TO SPEAK DUE TO APHASIA AND HX CRANIOTOMY , ON TELE MONITOR SB 55, LT AND AND RT IG HL INTACT ,ON IVF ORDERED ,BED IN LOWEST AND LOCKED POSITION , CALLED DAUGHTER NOTIFIED THAT PATIENT IN TELE UNIT .NO SOB NOTED AT THIS TIME .ON RA . BED IN LOWEST AND LOCKED POSITION , WILL CONT TO MONITOR CLOSELY
--- NOTE | 2018-06-17 18:22 | NUR ---
CAROLE RN NOTE FED BY CAREGIVER , ALL NEEDS ATTENDED, NOT IN ACUTE DISTRESS
--- NOTE | 2018-06-17 22:45 | NUR ---
CAROLE/RN NOTES: RECEIVED PT. REPORT FROM CHAN NAJERA. ALERT BUT APHASIC. NO FACIAL GRIMACES OR MOANING NOTED. EYES OPEN. ON TELE MONITOR W/ SB AT 40'S. W/ PRIVATE STREET LIGHT SERVICER HELPER BY BEDSIDE. W/ F/C PATENT AND INTACT DRAINING TO YELLOW URINE. HAS RIJ W/ IVF PATENT AND INTACT W/ NO S/S ON INFECTION/INFILTRATION NOTED. W/ LH G 20 PATENT AND INTACT W/ NO S/S INFECTION/INFILTRATION NOTED. INCONTINENT OF B/B. TURNED AND REPOSITIONED. CALL LIGHT W/ REACH.
[2018-06-18] VITALS (7 sets, daily range): BP systolic 117–148; BP diastolic 68–86
[2018-06-18] MEDS: PIPERACILLIN /TAZOBACTAM 3.375 G in IV D5W 50 ML IV SCH ×3 (00:31→11:49)
[2018-06-18] MEDS: IV D5/ 0.9% NACL 1,000 ML IV PRN (03:56)
[2018-06-18 07:03] LABS: BASOPHILS % (AUTO) 0.1 % (0.0-2.0); EOSINOPHILS % (AUTO) 0.3 % (0.0-6.0); HEMATOCRIT 23 % (39-51); HEMOGLOBIN 7.7 g/dL (13.5-17.5); LYMPHOCYTES # (AUTO) 0.8 /CMM (0.8-4.8); LYMPHOCYTES % (AUTO) 19.2 % (20.0-44.0); MEAN CORPUSCULAR HGB CONC 35 g/dl (31.0-36.0); MEAN CORPUSCULAR VOLUME 95 fL (80-96); MONOCYTES # (AUTO) 0.5 /CMM (0.1-1.30); MONOCYTES % (AUTO) 11.8 % (2.0-12.0); NEUTROPHILS # (AUTO) 2.7 /CMM (1.8-8.9); NEUTROPHILS % (AUTO) 68.6 % (43.0-81.0); PLATELET COUNT (AUTO) 169 /CMM (150-450); RED BLOOD CELL COUNT(AUTO) 2.37 MIL/uL (4.5-6.0)
--- NOTE | 2018-06-18 07:11 | NUR ---
CAROLE/RN NOTES: REPORT GIVEN TO NEXT SHIFT FOR GAVI.
[2018-06-18 07:17] LABS: CALCIUM, SERUM 7.7 mg/dL (8.5-10.1); CREATININE 0.8 mg/dL (0.6-1.3); MAGNESIUM 1.9 mg/dL (1.8-2.4); PHOSPHORUS 3.4 mg/dL (2.5-4.9); POTASSIUM 2.9 mmol/L (3.5-5.1)
--- NOTE | 2018-06-18 07:30 | NUR ---
RN NOTES RECEIVED PATIENT ON BED. HOB ELEVATED, AWAKE AND ALERT, NON VERBAL. ON ROOM AIR. NO SOB NOTED AT THIS TIME, SATING AT 95%, NO SIGNS OF PAIN NOTED. SR WITH HR AT 60 ON THE MONITOR . IV LINE ON THE R IJ, SITE IS CLEAN,DRY AND INTACT. PATENT ON FLUSHING. NO INFILTRATION NOTED.WITH ON GOING NS AT 50 C/HR. ALEXANDER CATHETER IN PLACE, DRAINING VIA GRAVITY TO CLOUDY URINE. CAREGIVER AT BEDSIDE. SAFETY MEASURES OBSERVED AND MAINTAINED. BED IN LOW AND LOCKED POSITION. CALL LIGHT WITHIN REACH. ISOLATION IMPLEMENTED. WILL CONTINUE TO MONITOR THE PT CLOSELY.
[2018-06-18] MEDS: ASPIRIN EC 81 MG TABLET.DR PO SCH (08:54)
[2018-06-18] MEDS: HYDROCORTISONE SOD SUCCINATE 100 MG/2 ML VIAL IV SCH ×3 (08:54→18:04)
[2018-06-18] MEDS: DEXAMETHASONE 4 MG TABLET PO SCH ×2 (08:54→18:08)
[2018-06-18] MEDS: CHOLECALCIFEROL 1,000 UNIT TABLET (VIT D3) PO SCH ×2 (08:55→18:05)
[2018-06-18] MEDS: LEVETIRACETAM (250 MG) 250 MG TABLET PO SCH ×2 (08:55→18:05)
[2018-06-18] MEDS: FAMOTIDINE (20 MG) 20 MG TABLET PO SCH ×2 (08:55→18:05)
[2018-06-18] MEDS: NEOMY SULF/BACITRAC ZN/POLY 15 GM TUBE TP SCH ×2 (08:56→23:01)
[2018-06-18] MEDS: CLOTRIMAZOLE/BETAMETASONE DIPROPIONATE 15 GM TUBE TP SCH ×2 (08:56→18:05)
[2018-06-18] MEDS: POTASSIUM CHLORIDE 20 MEQ TAB.PRT.SR PO SCH ×3 (11:49→13:35)
[2018-06-18] MEDS: VANCOMYCIN 1 GM in IV D5W 250 ML IV SCH (12:43)
[2018-06-18] MEDS ORDERED: ALBUTEROL FS 2.5 MG/0.5 ML VIAL.NEB NEB PRN (15:00)
[2018-06-18] MEDS ORDERED: IPRATROPIUM NEB FS 0.5 MG/2.5 ML AMPUL.NEB NEB PRN (15:00)
[2018-06-18] MEDS: CEFEPIME 1 GM in IV D5W 50 ML IV SCH (18:08)
--- NOTE | 2018-06-18 19:35 | NUR ---
RN NOTES ENDORSED FOR CONTINUITY OF CARE. NO ACUTE CHANGES FOR THE ENTIRE SHIFT. ALL NURSING NEEDS ATTENDED AND MET. SAFETY MEASURES IN PLACE AT ALL TIMES. CALL LIGHT WITHIN REACH
--- NOTE | 2018-06-18 20:00 | NUR ---
TELE/RN NOTES: RECEIVED PT. REPORT FROM AM NURSE. ALERT BUT APHASIC. NO FACIAL GRIMACES OR MOANING NOTED. EYES OPEN. ON TELE MONITOR W/ SR W 1 ST AV BLOCK. W/ PRIVATE CONFERENCE ASSISTANT BY BEDSIDE. W/ F/C PATENT AND INTACT DRAINING TO YELLOW URINE. HAS RIJ W/ IVF PATENT AND INTACT W/ NO S/S ON INFECTION/INFILTRATION NOTED. W/ LH G 20 PATENT AND INTACT W/ NO S/S INFECTION/INFILTRATION NOTED. INCONTINENT OF B/B. TURNED AND REPOSITIONED. CALL LIGHT W/ REACH.
--- NOTE | 2018-06-18 21:23 | NUR ---
TELE/RN NOTES: REPORT GIVEN TO CHAN HAMPTON FOR GAVI.
--- NOTE | 2018-06-18 23:00 | NUR ---
DEEP FAT COOK FRY NOTES RECEIVED REPORT FROM SHABNAM GILES FOR GAVI.
[2018-06-19] VITALS: BP 148/73
[2018-06-19 04:00] VITALS: BP 152/97
[2018-06-19] MEDS: CEFEPIME 1 GM in IV D5W 50 ML IV SCH (06:11)
--- NOTE | 2018-06-19 07:20 | NUR ---
FACILITY REHAB DIRECTOR NOTES PATIENT IN BED EYES CLOSED, EASY TO AROUSE. HEAD OF BED ELEVATED. RESPOND TO VERBAL AND TACTILE STIMULI. NO ACUTE DISTRESS NOTED. BREATHING UNLABORED. NO SOB NOTED. IV ACCESS PATENT AND INTACT, NO REDNESS OR SWELLING NOTED. SAFETY MEASURES IN PLACE. CALL LIGHT WITHIN REACH. WILL CONTINUE TO MONITOR ACCORDINGLY.
[2018-06-19 07:57] LABS: BASOPHILS % (AUTO) 0.3 % (0.0-2.0); EOSINOPHILS % (AUTO) 0.2 % (0.0-6.0); HEMATOCRIT 23 % (39-51); HEMOGLOBIN 7.9 g/dL (13.5-17.5); LYMPHOCYTES # (AUTO) 0.8 /CMM (0.8-4.8); LYMPHOCYTES % (AUTO) 18.1 % (20.0-44.0); MEAN CORPUSCULAR HGB CONC 34 g/dl (31.0-36.0); MEAN CORPUSCULAR VOLUME 95 fL (80-96); MONOCYTES # (AUTO) 0.4 /CMM (0.1-1.30); MONOCYTES % (AUTO) 9.1 % (2.0-12.0); NEUTROPHILS # (AUTO) 3.4 /CMM (1.8-8.9); NEUTROPHILS % (AUTO) 72.3 % (43.0-81.0); PLATELET COUNT (AUTO) 178 /CMM (150-450); RED BLOOD CELL COUNT(AUTO) 2.42 MIL/uL (4.5-6.0); WHITE BLOOD COUNT (AUTO) 4.7 K/uL (4.3-11.0)
[2018-06-19 08:00] VITALS: BP 125/66
[2018-06-19 08:16] LABS: CALCIUM, SERUM 7.7 mg/dL (8.5-10.1); CREATININE 0.7 mg/dL (0.6-1.3); MAGNESIUM 1.8 mg/dL (1.8-2.4); PHOSPHORUS 3.1 mg/dL (2.5-4.9); POTASSIUM 3.3 mmol/L (3.5-5.1)
[2018-06-19] MEDS: HYDROCORTISONE SOD SUCCINATE 100 MG/2 ML VIAL IV SCH ×2 (08:36→13:30)
[2018-06-19] MEDS: ASPIRIN EC 81 MG TABLET.DR PO SCH (08:36)
[2018-06-19] MEDS: CHOLECALCIFEROL 1,000 UNIT TABLET (VIT D3) PO SCH (08:36)
[2018-06-19] MEDS: DEXAMETHASONE 4 MG TABLET PO SCH (08:37)
[2018-06-19] MEDS: FAMOTIDINE (20 MG) 20 MG TABLET PO SCH (08:37)
[2018-06-19] MEDS: LEVETIRACETAM (250 MG) 250 MG TABLET PO SCH (08:37)
[2018-06-19] MEDS: CLOTRIMAZOLE/BETAMETASONE DIPROPIONATE 15 GM TUBE TP SCH (08:38)
[2018-06-19] MEDS: NEOMY SULF/BACITRAC ZN/POLY 15 GM TUBE TP SCH (08:39)
[2018-06-19] MEDS ORDERED: CLOT15CR5 TP (10:10)
[2018-06-19] MEDS ORDERED: LEVE250T2 PO (10:10)
[2018-06-19] MEDS ORDERED: POTASSIUM CHLORIDE 20 MEQ POWDER PACKET PO ONE (11:15)
[2018-06-19 12:00] VITALS: BP 132/74
--- NOTE | 2018-06-19 12:11 | NUR ---
SEAL SKINNER NOTES RECEIVED NEW ORDERS FROM DR DANIELS TO DISCONTINUE ALEXANDER CATHETER, NOTED AND CARRIED OUT.
--- NOTE | 2018-06-19 12:30 | NUR ---
FOSTER CARE SOCIAL WORKER NOTES ALEXANDER CATHETER REMOVED, PATIENT TOLERATED WELL. DENIED ANY PAIN, NO BLEEDING NOTED.
--- NOTE | 2018-06-19 15:30 | NUR ---
SHIFTMAN NOTES PATIENT VOIDED X 2, CLEAR , YELLOW.
--- NOTE | 2018-06-19 15:59 | NUR ---
Telemetry Nurse, right jugular vein central discontinued along with tip of catheter removed used all health record technician pressure dressing applied for 5min no signs of bleeding noted will continue to assess and evaluate
[2018-06-19 16:00] VITALS: BP 128/72
--- NOTE | 2018-06-19 16:30 | NUR ---
CHIEF STEWARD/STEWARDESS NOTES PATIENT DISCHARGE HOME WITH DAUGHTER WITH STABLE VITAL SIGNS. NO ACUTE DISTRESS NOTED. BREATHING UNLABORED. NO SOB NOTED. DISCHARGE INSTRUCTIONS GIVEN TO THE DAUGHTER INCLUDING FOLLOW WITH DOCTORS AND NEW PRESCRIPTIONS, VERBALIZED UNDERSTANDING. ALL BELONGINGS ACCOUNTED FOR. IV ACCESS REMOVED. NO REDNESS, NO SWELLING, NO BLEEDING NOTED. NO URINARY RETENTION NOTED. WHEELED TO THE LOBBY ASSISTED TO A PRIVATE CARE WITH DAUGHTER IN STABLE CONDITION.
== END 2018-06-19 18:34 | disposition home or self-care (01) | DRG 720 ==
LOC: ER 22:49 → TELE1 06-12 03:25 → ICU 06-14 10:02 → TELE-TD 06-17 15:03 → TELE1 06-18 14:08
PROVIDERS: ATTEND Student in an Organized Health Care Education/Training Program
PROC: 02HV33Z Insertion of Infusion Device into Superior Vena Cava, Percutaneous Approach (ICD-10-PCS; principal; 2018-06-14)
PROC: 5A1945Z Respiratory Ventilation, 24-96 Consecutive Hours (ICD-10-PCS; principal; 2018-06-14)
PROC: 0BH17EZ Insertion of Endotracheal Airway into Trachea, Via Natural or Artificial Opening (ICD-10-PCS; principal; 2018-06-14)
PROC: B548ZZA Ultrasonography of Superior Vena Cava, Guidance (ICD-10-PCS; principal; 2018-06-14)
DX: A41.9 Sepsis, unspecified organism (principal); J96.01 Acute respiratory failure with hypoxia; N17.0 Acute kidney failure with tubular necrosis; G93.6 Cerebral edema; J69.0 Pneumonitis due to inhalation of food and vomit; R65.21 Severe sepsis with septic shock; C71.9 Malignant neoplasm of brain, unspecified; E87.2 Acidosis; E23.0 Hypopituitarism; I27.82 Chronic pulmonary embolism; E22.2 Syndrome of inappropriate secretion of antidiuretic hormone; E44.0 Moderate protein-calorie malnutrition; E87.5 Hyperkalemia; L30.4 Erythema intertrigo; G81.91 Hemiplegia, unspecified affecting right dominant side; E88.09 Other disorders of plasma-protein metabolism, not elsewhere classified; Z68.26 Body mass index [BMI] 26.0-26.9, adult; Z86.718 Personal history of other venous thrombosis and embolism; Z87.891 Personal history of nicotine dependence; I10 Essential (primary) hypertension; D64.9 Anemia, unspecified
CPT/HCPCS: 31720; 36415; 36600; 70450-TC; 71045-TC; 74018; 80048-TC; 80053-TC; 80061-TC; 80076-TC; 80156-TC; 80202-TC; 81000-TC; 82728-TC; 82803-TC; 83540-TC; 83605-TC; 83735-TC; 83935-TC; 84100-TC; 84300-TC; 84439-TC; 84443-TC; 84481; 84484-TC; 84550-TC; 85025-TC; 87040-TC; 87070-TC; 87081-TC; 87186-TC; 92526; 92611-TC; 93307-TC; 93970-TC; 94002-TC; 94003-TC; 94799-TC; 97110-TC; 97112-TC; 97116-TC; 97530-TC; 97535-TC; A4349; A6402; C1750; C1751; G0378; J0692; J1650; J1720; J2405; J2543; J3370; J3480; J3490; J7030; J7040; J7042; J7050; J7060; J8540; Q9967